=== PATIENT | female | born 1990 | race Caucasian/White ===

== ENCOUNTER 2023-02-05 16:43 | Emergency (ER) | payer OTHER ==
[~2023-02-05] VITALS: Ht 170.2 cm; Wt 66.0 kg
[2023-02-05] MEDS ORDERED: METHOCARBAMOL500 MG PO (18:31)
[2023-02-05] MEDS ORDERED: NAPROXEN500 MG PO (18:31)
[2023-02-05 18:55] VITALS: BP 118/71
== END 2023-02-05 19:00 | disposition home or self-care (01) | DRG 552 ==
LOC: ED 16:43
DX: S16.1XXA Strain of muscle, fascia and tendon at neck level, initial encounter (principal); V49.40XA Driver injured in collision with unspecified motor vehicles in traffic accident, initial encounter; S39.012A Strain of muscle, fascia and tendon of lower back, initial encounter

== ENCOUNTER 2023-06-26 13:53 | Emergency (ER) | payer OTHER ==
[2023-06-26] VITALS (7 sets, daily range): BP systolic 96–128; BP diastolic 60–86
[~2023-06-26] VITALS: Ht 170.2 cm; Wt 77.0 kg
[~2023-06-26 13:53] MED LIST: METHOCARBAMOL500 MG PO; NAPROXEN500 MG PO
[2023-06-26 15:32] LABS: URINE BILIRUBIN - DIPSTICK Negative (NEGATIVE); URINE BLOOD DIPSTICK Negative (NEGATIVE); URINE GLUCOSE - DIPSTICK Negative (NEGATIVE); URINE KETONE Trace mg/dL (NEGATIVE); URINE LEUK ESTERASE Negative (NEGATIVE); URINE NITRITE - DIPSTICK Negative (Negative); URINE PROTEIN - DIPSTICK Trace mg/dL (NEG-TRACE); URINE SPECIFIC GRAVITY 1.025
[2023-06-26 15:37] LABS: URINE COLOR Yellow
[2023-06-26] MEDS ORDERED: ORPHENADRINE100 MG PO (18:46)
[2023-06-26] MEDS ORDERED: IBUPROFEN600 MG PO (18:46)
== END 2023-06-26 19:08 | disposition home or self-care (01) ==
LOC: ED 13:53
PROVIDERS: Family Medicine
DX: S29.012A Strain of muscle and tendon of back wall of thorax, initial encounter (principal); X58.XXXA Exposure to other specified factors, initial encounter; Z20.822 Contact with and (suspected) exposure to COVID-19